=== PATIENT | female | born 1980 | race Two or more races ===

== ENCOUNTER → 2020-04-24 | Day surgery (SDC) | payer OTHER ==
[~2020-04-24] MED LIST: ALLERGY INJECTIONS SC; BREO ELLIPTA 11 EACH INH; CLARITIN10 M2 PO; CLEOCIN HCL300 MG PO; DOCUSATE SODIU100 MG PO; FAMOTIDINE40 MG PO; FENOFIBRATE134 MG PO; GLUCOPHAGE XR500 M1 PO; HYDROCHLOROTHIA25 MG PO; HYDROXYZINE HCL25 MG PO; LEXAPRO TAB 1010 MG PO; LODINE CAP 300300 MG PO; LOVAZA1 GM PO; NORFLEX 100 MG100 MG PO; NOVOLOG 10100 UNITS/ INJ; REMERON30 MG PO; TOUJEO MAX300 UNIT/1 SQ; TRULICITY1.5 MG/0.5 SQ; VENTOLIN HFA 66.7 GM INH; VITAMIN D250 MCG PO; ZESTRIL2.5 MG PO; ZOFRAN4 MG PO
== END | disposition home or self-care (01) ==
LOC: OR 07:34
PROVIDERS: Internal Medicine Gastroenterology
PROC: 0DB78ZX Excision of Stomach, Pylorus, Via Natural or Artificial Opening Endoscopic, Diagnostic (ICD-10-PCS; 2020-04-24)
PROC: 0DB68ZX Excision of Stomach, Via Natural or Artificial Opening Endoscopic, Diagnostic (ICD-10-PCS; principal; 2020-04-24 10:45)
DX: K29.50 Unspecified chronic gastritis without bleeding (principal); K76.0 Fatty (change of) liver, not elsewhere classified; K74.60 Unspecified cirrhosis of liver; I10 Essential (primary) hypertension; E78.00 Pure hypercholesterolemia, unspecified; E11.9 Type 2 diabetes mellitus without complications; I49.9 Cardiac arrhythmia, unspecified; E66.01 Morbid (severe) obesity due to excess calories; Z68.41 Body mass index [BMI] 40.0-44.9, adult; Z88.8 Allergy status to other drugs, medicaments and biological substances; Z79.4 Long term (current) use of insulin; Z79.899 Other long term (current) drug therapy; Z20.822 Contact with and (suspected) exposure to COVID-19
CPT/HCPCS: 82962; J2704; J7040

== ENCOUNTER → 2020-04-30 | Outpatient (CLI) | payer OTHER | LOC: CT 14:12 | DX: R31.29 Other microscopic hematuria (principal); K76.0 Fatty (change of) liver, not elsewhere classified | CPT/HCPCS: 36415; 82565; Q9967 ==

== ENCOUNTER → 2020-05-23 | Outpatient (CLI) | payer OTHER | LOC: LAB 08:18 | DX: R30.0 Dysuria (principal) | CPT/HCPCS: 87077; 87086 ==

== ENCOUNTER → 2020-06-07 | Outpatient (CLI) | payer OTHER | LOC: NM 07:58 | DX: E11.43 Type 2 diabetes mellitus with diabetic autonomic (poly)neuropathy (principal) | CPT/HCPCS: 78264; A9541 ==

== ENCOUNTER 2021-03-14 10:02 | Emergency (ER) | payer OTHER | END 2021-03-14 12:37 | disposition home or self-care (01) | LOC: ER1 10:02 | DX: U07.1 COVID-19 (principal); J12.82 Pneumonia due to coronavirus disease 2019; E78.5 Hyperlipidemia, unspecified; Z88.8 Allergy status to other drugs, medicaments and biological substances; I10 Essential (primary) hypertension; J44.9 Chronic obstructive pulmonary disease, unspecified; E11.22 Type 2 diabetes mellitus with diabetic chronic kidney disease | CPT/HCPCS: 71045; 99283 ==

== ENCOUNTER 2021-10-05 14:39 | Emergency (ER) | payer OTHER ==
[2021-10-05] MEDS ORDERED: IBUPROFEN600 MG PO (20:22)
[2021-10-05] MEDS ORDERED: NORFLEX 100 MG100 MG PO (20:22)
== END 2021-10-05 20:45 | disposition home or self-care (01) ==
LOC: ER1 14:39
DX: S09.90XA Unspecified injury of head, initial encounter (principal); S40.012A Contusion of left shoulder, initial encounter; S70.02XA Contusion of left hip, initial encounter; S80.02XA Contusion of left knee, initial encounter; E11.9 Type 2 diabetes mellitus without complications; Z88.8 Allergy status to other drugs, medicaments and biological substances; W10.9XXA Fall (on) (from) unspecified stairs and steps, initial encounter; Y92.009 Unspecified place in unspecified non-institutional (private) residence as the place of occurrence of the external cause
CPT/HCPCS: 70450; 73030; 73502; 73564; 99284